=== PATIENT | male | born 1995 | race Caucasian/White ===

== ENCOUNTER 2016-09-07 18:32 | Emergency (ER) | payer BC, OTHER ==
[2016-09-07] MEDS ORDERED: NS 1,000 ML IV ONE ×2 (18:44→19:42)
[2016-09-07] MEDS ORDERED: ONDANSETRON 4 MG/2 ML VIAL IVP ONE (18:44)
--- NOTE | 2016-09-07 18:45 | UCPHY ---
H & P Patient Type: New Chief Complaint Nursing Narrative: c/o N/D x 2 wks - recently put on Antibotic by [facility] - but does not know name- HPI/ROS: HPI CHIEF COMPLAINT: "I want an IV" HISTORY OF PRESENT ILLNESS: This patient 21-year-old male, presents urgent care with no symptoms however tells me that he would like an IV with IV fluids as heat tells me he is dehydrated. Clinically on exam is moved moist mucus membranes, he tells me he has been urinating fine and drinking water fine he has clear to mildly tinged yellow urine he tells me. States been recently sick with a diarrheal illness Campylobacter. He is on antibiotic for that does not remember the exact name. He thinks been taking Cipro for the past 2 days. He is prescribed this by [facility]. Denies any fever, vomiting, abdominal pain or abdominal cramping. He states that since taking the antibiotic his diarrhea is improved. Past Medical History:No medical history Past Surgical History: no surgical history Social History: Denies use of drugs alcohol tobacco products Family History: Noncontributory ROS REVIEW OF SYSTEMS: A comprehensive 10 point review of systems is otherwise negative aside from elements mentioned in the history of present illness. Exam Constitutional appears well nontoxic, moist mucous membranes, does not appear dehydrated, triage nursing summary reviewed, vital signs reviewed, awake/alert. Eyes normal conjunctivae and sclera, EOMI, PERRLA. HENT normal inspection, atraumatic, moist mucus membranes, no epistaxis, neck supple/ no meningismus, no raccoon eyes. Respiratory clear to auscultation bilaterally, normal breath sounds, no respiratory distress, no wheezing. Cardiovascular rate normal, regular rhythm, no murmur, no edema, distal pulses normal. Gastrointestinal soft, non-tender, no rebound, no guarding, normal bowel sounds, no distension, no pulsatile mass. Genitourinary no CVA tenderness. Musculoskeletal no midline vertebral tenderness, full range of motion, no calf swelling, no tenderness of extremities, no meningismus, good pulses, neurovascularly intact. Skin pink, warm, & dry, no rash, skin atraumatic. Neurologic awake, alert and oriented x 3, AAOx3, moves all 4 extremities equally, motor intact, sensory intact, CN II-XII intact, normal cerebellar, normal vision, normal speech. Psychiatric normal mood/affect. Heme/Lymph/Immune no lymphadenopathy. Differential Diagnosis: includes but is not limited to in a particular order, electrolyte disturbance, diarrheal illness, dehydration, infection Medical Decision Making: This patient does not appear dehydrated he appears well nontoxic asthma moist mucus membranes. He specifically requesting an IV with IV fluids. I explained that clinically I will think he needs this given that he is taking p.o. not vomiting and has clear urine however he is requesting IV anyway. On exam he appears well nontoxic abdomen is soft nontender. Re-evaluation: 192: Patient is resting comfortably here in the Urgent Care in no acute distress abdomen is soft nontender. No vomiting. Patient appears well hydrated. Blood work reviewed no indication of acute kidney injury severe dehydration. 1 L fluid given to him in the urgent care. I encouraged p.o. intake. Continue antibiotics. Return to the urgent care or emergency room if there is worsening abdominal pain, fever, vomiting, bloody stools. Source: Patient - Personal History Current Tetanus Diphtheria and Acellular Pertussis (TDAP): Yes - Medical/Surgical History Hx Asthma: No Hx Chronic Respiratory Disease: No Hx Diabetes: No Hx Cardiac Disease: No Hx Renal Disease: No Hx Cirrhosis: No Hx Alcoholism: No Hx HIV/AIDS: No Hx Splenectomy or Spleen Trauma: No Other PMH: denies - Family History Significant Family History: No pertinent family hx - Social History Smoking Status: Never smoked Constitutional: Initial Vital Signs Temperature (C) 36.6 C 09/07/16 18:40 Heart Rate 97 09/07/16 18:40 Respiratory Rate 18 09/07/16 18:40 Blood Pressure 109/81 H 09/07/16 18:40 O2 Sat (%) 98 09/07/16 18:40 O2 Delivery Mode Room Air Allergies/Adverse Reactions: No Known Allergies Allergy (Unverified 10/02/13 00:32) Home Medications: Medication Instructions Recorded Antibotic 09/07/16 Medical Decision Making - Data Points Laboratory Results: Laboratory Results 09/07/16 18:56 09/07/16 18:56 09/07/16 09/07/16 18:56 18:56 WBC 4.36 10^3/uL 10^3/uL (3.80-9.50) RBC 5.28 10^6/uL 10^6/uL (4.40-6.38) Hgb 15.7 g/dL g/dL (13.7-17.5) Hct 42.6 % % (40.0-51.0) MCV 80.7 fL L fL (81.5-99.8) MCH 29.7 pg pg (27.9-34.1) MCHC 36.9 g/dL H g/dL (32.4-36.7) RDW 11.9 % % (11.5-15.2) Plt Count 173 10^3/uL 10^3/uL (150-400) MPV 10.0 fL fL (8.7-11.7) Neut % (Auto) Not Reported Lymph % (Auto) Not Reported Ada % (Auto) Not Reported Eos % (Auto) Not Reported Baso % (Auto) Not Reported Nucleat RBC Rel Count 0.0 % % (0.0-0.2) Absolute Neuts (auto) Not Reported Absolute Lymphs (auto) Not Reported Absolute Monos (auto) Not Reported Absolute Eos (auto) Not Reported Absolute Basos (auto) Not Reported Absolute Nucleated RBC 0.00 10^3/uL 10^3/uL (0-0.01) Immature Gran % Not Reported Immature Gran # Not Reported Platelet Estimate Pending Sodium 133 mEq/L L mEq/L (134-144) Potassium 3.9 mEq/L mEq/L (3.5-5.2) Chloride 93 mEq/L L mEq/L (97-110) Carbon Dioxide 27 mEq/l mEq/l (22-31) Anion Gap 13 mEq/L mEq/L (8-16) BUN 10 mg/dL mg/dL (7-23) Creatinine 0.8 mg/dL mg/dL (0.7-1.3) Estimated GFR > 60 Glucose 88 mg/dL mg/dL (70-100) Calcium 8.9 mg/dL mg/dL (8.5-10.4) Total Bilirubin 2.4 mg/dL H mg/dL (0.1-1.4) Conjugated Bilirubin 0.3 mg/dL mg/dL (0.0-0.5) Unconjugated Bilirubin 2.1 mg/dL H mg/dL (0.0-1.1) AST 24 IU/L IU/L (17-59) ALT 35 IU/L IU/L (21-72) Alkaline Phosphatase 74 IU/L IU/L (38-126) Total Protein 7.0 g/dL g/dL (6.3-8.2) Albumin 4.0 g/dL g/dL (3.5-5.0) Lipase 142.0 IU/L IU/L (23-300) Departure - Departure Disposition: Home, Routine, Self-Care Clinical Impression: Diarrhea Qualifiers: Diarrhea type: unspecified type Qualified Code(s): R19.7 - Diarrhea, unspecified Condition: Good Instructions: Acute Diarrhea (ED) Additional Instructions: 1. Stay well-hydrated drink lots of fluids. 2. return to the urgent care or emergency room if you have any worsening symptoms questions or concerns. 3.Seek medical attention if you have severe abdominal pain, bloody stool. Her diarrhea is not improving. Referrals: [facility] [Other] - As per Instructions - PQRS PQRS Measurement: n/a
[2016-09-07 19:11] LABS: ADD MORPH? NO; FRAGMENT RBC FLAG 0 (0-99); HEMATOCRIT 42.6 % (40.0-51.0); HEMOGLOBIN 15.7 g/dL (13.7-17.5); LEFT SHIFT FLG 40 (0-99); LIPEMIA HEMOLYSIS FLAG 90 (0-99); MEAN CELL HEMOGLOBIN 29.7 pg (27.9-34.1); MEAN CELL HEMOGLOBIN CONCENTR. 36.9 g/dL (32.4-36.7); MEAN CELL VOLUME 80.7 fL (81.5-99.8); PLATELET CLUMPS FLAG 0 (0-99); PLATELET COUNT 173 10^3/uL (150-400); RED BLOOD CELL COUNT 5.28 10^6/uL (4.40-6.38); RED CELL DISTRIBUTION WIDTH 11.9 % (11.5-15.2)
[2016-09-07 19:13] LABS: ADD SCAN? NO; ATYPICAL LYMPHOCYTE FLAG 190 (0-99)
[2016-09-07 19:14] LABS: ADD DIFF? YES
[2016-09-07 19:17] LABS: ALANINE AMINOTRANSFERASE 35 IU/L (21-72); ALKALINE PHOSPHATASE 74 IU/L (38-126); ANION GAP 13 mEq/L (8-16); ASPARTATE AMINOTRANSFERASE 24 IU/L (17-59); BILIRUBIN,TOTAL 2.4 mg/dL (0.1-1.4); BILIRUBIN-CONJUGATED 0.3 mg/dL (0.0-0.5); BILIRUBIN-UNCONJUGATED 2.1 mg/dL (0.0-1.1); CALCIUM 8.9 mg/dL (8.5-10.4); CARBON DIOXIDE 27 mEq/l (22-31); CHLORIDE 93 mEq/L (97-110); CREATININE 0.8 mg/dL (0.7-1.3); GLOMERULAR FILTRATION RATE > 60; GLUCOSE 88 mg/dL (70-100); POTASSIUM 3.9 mEq/L (3.5-5.2); SODIUM 133 mEq/L (134-144)
[2016-09-07] MEDS ORDERED: ACETAMINOPHEN 500 MG TAB ONE (19:30)
[2016-09-07] MEDS ORDERED: KETOROLAC 30 MG/1 ML SDV IVP ONE (19:42)
[2016-09-07 19:43] LABS: PLATELET ESTIMATE ADEQUATE (ADEQ)
[2016-09-07 20:38] VITALS: O2SAT 95
[2016-09-07 21:11] VITALS: BP 117/64; PULSE 75; RESP 20; TEMP 98.8
== END 2016-09-07 21:08 | disposition home or self-care (01) ==
LOC: CED 18:32
DX: R19.7 Diarrhea, unspecified (principal)
CPT/HCPCS: 80048-PO; 80076-PO; 83690-PO; 85025-PO; 96361-PO; 96374-PO; 99205-PO; G0463-PO; J1885